=== PATIENT | male | born 1985 | race Caucasian/White ===

== ENCOUNTER 2016-10-02 09:12 | Emergency (ER) | payer OTHER ==
[~2016-10-02] VITALS: Ht 177.8 cm; Wt 71.5 kg
[2016-10-02 09:13] VITALS: Ht 177.8 cm; Wt 71.5 kg
[2016-10-02] MEDS ORDERED: morphine 4 MG/ML VIAL IV STA (10:33)
[2016-10-02] MEDS ORDERED: KETOROLAC 15 MG INJ IV STA (10:33)
--- NOTE | 2016-10-02 10:51 | ERA ---
ER Documentation Chief Complaint Date/Time DATE: 10/02/16 TIME: 10:47 Chief Complaint HEADACHE, FEELING MARLON, DIZZINESS HPI 31-year-old male presenting with a chief complaint of left-sided headache and fatigue 2-3 hours. Patient has had the headache 2 3 days. Denies fever, worst headache of life, thunderclap headache, meningismus, temporal pain, eye pain, aura, change in vision, or new medications. Patient has experienced fatigue while working. States that he keeps well-hydrated. Has had symptoms like this in the past that spontaneously resolved. Is no other complaints and describes no other associated manifestations. The nursing notes have been reviewed and are consistent with the obtained history. ROS All systems reviewed and are negative except as per history of present illness. Allergies Allergies: Coded Allergies: No Known Allergy (Unverified , 10/02/16) PMhx/Soc Medical and Surgical Hx: pt denies Medical Hx, pt denies Surgical Hx Hx Alcohol Use: Yes (rarely) Hx Substance Use: No Hx Tobacco Use: No Smoking Status: Never smoker Physical Exam Vitals Vital Signs Date Time Temp Pulse Resp B/P Pulse Ox O2 Delivery O2 Flow Rate FiO2 10/02/16 09:13 97.9 99 18 139/79 99 Physical Exam Const: Healthy-appearing. Well-nourished. Well-developed. No acute distress. Head: Normocephalic, Atraumatic. Eyes: Non-injected; No discharge or foreign body. Ophthalmoscope exam unremarkable. EOMI and JANINA bilaterally. No nystagmus. Neur: Awake, alert and oriented x3. Neurovascularly intact bilaterally. Psych: Normal Mood and Affect. Ears: Normal External Ears, EACs clear, TM normal bilaterally without erythema. Nose: Normal external nose; no discharge, septal deviation, or sinus tenderness. Oral: No oral edema visualized. Mucous membranes moist and pink. Neck: No cervical lymphadenopathy, masses or goiter palpated. Trachea midline. Full range of motion. Supple ~ No meningismus. Negative kernings and brudnizkis signs. Pulm: Good air movement in upper and lower respiratory tracts. No dyspnea, stridor, tripoding or drooling. Clear to auscultation bilaterally. Cardio: Regular rate and rhythm; No murmurs, gallops or rubs auscultated. No JVD grossly observed. Radial and posterior tibial pulses 2+ bilaterally. No cyanosis. Capillary refill less than 2 seconds. Abd: Soft, non tender, non distended. No guarding, masses. Normal bowel sounds. No McBurney's point tenderness. MS: Normal motor strength, normal tone with gross examination. Skin: No petechiae or rashes. No ulcer, induration, jaundice. Good turgor. Back: No midline, flank or CVA tenderness. Ext: No edema or palpable cord. Normal movement of all extremities grossly observed. Results 24 hrs Current Medications Medications (Trade) Dose Ordered Sig/Jhonathan Route PRN Reason Start Time Stop Time Status Last Admin Dose Admin Sodium Chloride (NS) 500 ml @ 500 mls/hr Q1H ONCE IV 10/02/16 11:00 10/02/16 11:59 Metoclopramide HCl (Reglan) 10 mg ONCE ONCE IV 10/02/16 11:00 10/02/16 11:01 Morphine Sulfate (morphine) 3 mg ONCE STAT IV 10/02/16 10:33 10/02/16 10:37 DC Ketorolac Tromethamine (Toradol) 15 mg ONCE STAT IV 10/02/16 10:33 10/02/16 10:37 DC Procedures/MDM Otherwise healthy 31-year-old male presenting with a chief complaint of headache and fatigue as described in the history and physical examination. Patient was going to receive a CBC, BMP, 500 mL of saline, Toradol 15 mg IV, Reglan 10 mg IV, and morphine 3 mg IV. Patient however refused all medications and stated that his symptoms had spontaneously resolved. I reassessed the patient and his physical remained unremarkable. I have stated that the patient should follow-up with his PCP, or return to the emergency department immediately if symptoms return change or worsen. Patient has verbally agreed acknowledged and agreed to the plan of management. Vitals are stable and current condition is appropriate for discharge. Patient will be discharged with discharge instructions return precautions. Departure Diagnosis: Primary Impression: Headache Qualified Code: R51 - Nonintractable headache, unspecified chronicity pattern , unspecified headache type Additional Impressions: Fatigue Qualified Code: R53.82 - Chronic fatigue Fatigue due to excessive exertion Qualified Code: T73.3XXA - Fatigue due to excessive exertion, initial encounter Condition: Stable Patient Instructions: Self-Care for Headaches, Weakness, Unk Cause Additional Instructions: Follow up with your PCP within the next 1-3 days for a more thorough evaluation and a possible referral to a specialist. Return the the emergency department immediately if symptoms worsen or change. If you have any questions regarding medications, ask your pharmacist or us before you leave. If any adverse reactions occur while taking your medications, discontinue the treatment and return to the emergency department immediately. Take your medications as directed, and complete the entire course of treatment. EMMA FULLER PA-C Oct 02, 2016 10:51
[2016-10-02] MEDS ORDERED: METOCLOPRAMIDE 10 MG INJ IV ONE (11:00)
[2016-10-02] MEDS ORDERED: SOD CHLORIDE 0.9% 500 ML IV ONE (11:00)
== END 2016-10-02 11:03 | disposition home or self-care (01) ==
LOC: FTE 09:12
DX: R51 Headache (principal); R53.82 Chronic fatigue, unspecified; T73.3XXA Exhaustion due to excessive exertion, initial encounter
CPT/HCPCS: J7040; Z7502; 99282